=== PATIENT | male | born 1970 | race African-American/Black ===

== ENCOUNTER 2022-04-16 10:08 | Day surgery (SDC) | payer MEDICARE, MEDICAID ==
[~2022-04-16] VITALS: Ht 188 cm; Wt 72.6 kg
[2022-04-16] MEDS ORDERED: LACTATED RINGERS 1,000 ML IV SCH (12:30)
[2022-04-16] MEDS ORDERED: IBUP-1653 PO (12:44)
[2022-04-16] MEDS ORDERED: PROPOFOL 200MG/20ML VIAL IV ONE (13:05)
[2022-04-16] MEDS ORDERED: MIDAZOLAM HCL 2 MG/2 ML VIAL ONE (13:05)
[2022-04-16] MEDS ORDERED: FENTANYL CITRATE/PF 50MCG/ML 2ML VIAL ONE (13:05)
[2022-04-16] MEDS ORDERED: LIDOCAINE HCL 1% 10 MG/ML 10ML VIAL ONE ×2 (13:06→13:13)
[2022-04-16] MEDS ORDERED: BUPIVACAINE HCL/PF 0.5% (5MG/ML) 10ML ONE (13:13)
[2022-04-16] MEDS ORDERED: ONDANSETRON HCL 4MG/2ML INJ ONE (14:24)
[2022-04-16] MEDS ORDERED: ONDANSETRON HCL 4MG/2ML INJ IV PRN (14:45)
[2022-04-16] MEDS ORDERED: HYDROMORPHONE HCL/PF 2MG/ML CPJ IV PRN (14:45)
[2022-04-16] MEDS ORDERED: KETOROLAC 30MG/ML VIAL ONE (14:52)
== END 2022-04-16 17:25 | disposition home or self-care (01) ==
LOC: OR 10:08
PROVIDERS: ATTEND Podiatrist Foot & Ankle Surgery
DX: M20.41 Other hammer toe(s) (acquired), right foot (principal); G80.9 Cerebral palsy, unspecified; F70 Mild intellectual disabilities; Z79.899 Other long term (current) drug therapy; Z98.890 Other specified postprocedural states; Z20.822 Contact with and (suspected) exposure to COVID-19
CPT/HCPCS: 28285; 73630; 87426; 88304; 88311; C9803; J1885; J2250; J2405; J2704; J3010; J3490